=== PATIENT | male | born 1975 | race African-American/Black ===

== ENCOUNTER 2024-03-16 12:32 | Inpatient (IN) | payer OTHER ==
[2024-03-16 14:32] VITALS: BMI 20.9
[2024-03-16] MEDS ORDERED: BENZOCAINE/MENTHOL (CHLORASEPTIC ) LOZENGE MM PRN (14:42)
[2024-03-16] MEDS ORDERED: LOPERAMIDE HCL 2 MG CAPSULE PO PRN (14:42)
[2024-03-16] MEDS ORDERED: NALOXONE (NARCAN) HCL 4 MG/0.1 ML SPRAY NS PRN (14:42)
[2024-03-16] MEDS ORDERED: MAGNESIUM HYDROX 2400MG/30ML ORAL SUSPENSION 30 ML CUP PO PRN (14:42)
[2024-03-16] MEDS ORDERED: IBUPROFEN 400 MG TABLET (FP) PO PRN (14:42)
[2024-03-16] MEDS ORDERED: BISMUTH SUBSALICYLATE 524 MG/30 ML PO PRN (14:42)
[2024-03-16] MEDS ORDERED: BENZONATATE 200 MG CAPSULE PO PRN (14:42)
[2024-03-16] MEDS ORDERED: MAG HYDROX/AL HYDROX/SIMETH 30 ML UNIT-DOSE CUP PO PRN (14:42)
[2024-03-16] MEDS ORDERED: guaiFENesin 600 MG TABLET.ER (FP) PO PRN (14:42)
[2024-03-16] MEDS ORDERED: chlordiazePOXIDE HCL 25 MG CAPSULE PO PRN (14:42)
[2024-03-16] MEDS ORDERED: DICYCLOMINE HCL 10 MG CAPSULE PO PRN (14:42)
[2024-03-16] MEDS ORDERED: ONDANSETRON *ODT* 4 MG TABLET SL PRN (14:42)
[2024-03-16] MEDS ORDERED: POLYETHYLENE GLYCOL (HEALTHYLAX) 3350 17 GM PACKET PO PRN (14:42)
[2024-03-16] MEDS: PRENATAL VITAMINS W/ FOLIC ACID TABLET (FP) PO SCH (17:08)
[2024-03-16] MEDS ORDERED: ALBUTEROL SO4 HFA INHALER IH PRN (17:53)
[2024-03-16] MEDS: MELATONIN 5 MG TABLETS PO SCH (22:44)
[2024-03-16] MEDS: chlordiazePOXIDE HCL 25 MG CAPSULE PO SCH (22:44)
[2024-03-16] MEDS: THIAMINE 100 MG TABLET PO SCH (22:44)
[2024-03-17] MEDS: BICTEGRAV/EMTRICIT/TENOFOV (BIKTARVY) 50-200-25 MG TABLET PO SCH (08:04)
[2024-03-17 11:14] LABS: HEMATOCRIT 39.4 % (35.4-49); HEMOGLOBIN 12.6 GM/dL (11.7-16.9); MCH 29.1 pg (25.7-33.7); MCHC 31.9 g/dl (32.0-35.9); MEAN CELL VOLUME 91.4 fl (80-96); MEAN PLT VOLUME 9.1 fl (7.5-11.1); PLATELET COUNT 176 10^3/uL (134-434); RBC 4.32 M/mm3 (4.00-5.60)
[2024-03-17] MEDS ORDERED: diazePAM 5 MG TABLET PO PRN (12:21)
[2024-03-17 13:32] LABS: CHLORIDE 111 mmol/L (98-107); POTASSIUM 3.8 mmol/L (3.5-5.1); SODIUM 144 mmol/L (136-145)
[2024-03-17 13:35] LABS: CALCIUM 9.2 mg/dL (8.5-10.1)
[2024-03-17 13:36] LABS: ALBUMIN 3.1 g/dl (3.4-5.0); ANION GAP 5 mmol/L (4-13); BLOOD UREA NITROGEN 11.6 mg/dL (7-18); CO2 28 mmol/L (21-32); GLUCOSE,RANDOM 100 mg/dL (74-106)
[2024-03-17 13:41] LABS: BILIRUBIN,TOTAL 0.5 mg/dL (0.2-1); SGOT/AST 19 U/L (15-37)
[2024-03-17 13:42] LABS: ALK PHOS 99 U/L (45-117)
[2024-03-17 13:43] LABS: SGPT/ALT 17 U/L (13-61)
[2024-03-17] MEDS: diazePAM 5 MG TABLET PO SCH (17:37)
[2024-03-17] MEDS: IBUPROFEN 600 MG TABLET (FP) PO PRN (17:38)
[2024-03-17] MEDS: MELATONIN 5 MG TABLETS PO SCH (22:38)
[2024-03-18] MEDS: ACETAMINOPHEN 325 MG TABLET (FP) PO PRN (03:07)
[2024-03-18] MEDS: hydrOXYzine PAMOATE 25 MG CAPSULE (FP) PO PRN (03:08)
[2024-03-18] MEDS ORDERED: chlordiazePOXIDE HCL 25 MG CAPSULE PO SCH (05:00)
[2024-03-18] MEDS: OLANZapine 10 MG TABLET PO SCH (22:33)
[2024-03-19] MEDS ORDERED: chlordiazePOXIDE HCL 10 MG CAPSULE PO PRN
[2024-03-19] MEDS ORDERED: chlordiazePOXIDE HCL 10 MG CAPSULE PO SCH (05:00)
[2024-03-19] MEDS: diazePAM 5 MG TABLET PO SCH (05:46)
[2024-03-20] MEDS ORDERED: chlordiazePOXIDE HCL 10 MG CAPSULE PO SCH (05:00)
[2024-03-20] MEDS: diazePAM 5 MG TABLET PO SCH (05:40)
[2024-03-20 09:30] LABS: EOS % 4.3 % (0-4.5); HEMATOCRIT 39.2 % (35.4-49); LYMPH % 38.1 % (8-40); MCH 29.9 pg (25.7-33.7); MCHC 33.1 g/dl (32.0-35.9); MEAN CELL VOLUME 90.3 fl (80-96); MEAN PLT VOLUME 9.1 fl (7.5-11.1); MONO % 10.4 % (3.8-10.2); NEUT % 46.2 % (42.8-82.8); PLATELET COUNT 189 10^3/uL (134-434); RBC 4.34 M/mm3 (4.00-5.60); RDW 15.1 % (11.9-15.9); WHITE BLOOD COUNT 3.3 K/mm3 (4.0-10.0)
[2024-03-20] MEDS: NALOXONE (NYS OPIOID OVERDOSE PROGRAM) 4 MG/0.1 ML SPRAY NS SCH (10:07)
[2024-03-20] MEDS: METHOCARBAMOL 500 MG TABLET PO PRN (22:28)
[2024-03-21] MEDS ORDERED: chlordiazePOXIDE HCL 10 MG CAPSULE PO ONE (05:00)
[2024-03-21] MEDS: diazePAM 5 MG TABLET PO ONE (06:22)
[2024-03-21 09:07] VITALS: BP 107/60; PULSE 83; RESP 18; TEMP 98.6
== END 2024-03-21 12:35 | disposition other institution (70) | DRG 775 ==
LOC: YASAS 12:32 → Y6N 17:15
PROVIDERS: ADMIT Allergy & Immunology; ATTEND Family Medicine Addiction Medicine
PROC: HZ2ZZZZ Detoxification Services for Substance Abuse Treatment (ICD-10-PCS; principal; 2024-03-16)
DX: F10.230 Alcohol dependence with withdrawal, uncomplicated (principal); F17.213 Nicotine dependence, cigarettes, with withdrawal; F25.9 Schizoaffective disorder, unspecified; Z21 Asymptomatic human immunodeficiency virus [HIV] infection status; J45.20 Mild intermittent asthma, uncomplicated; Z20.2 Contact with and (suspected) exposure to infections with a predominantly sexual mode of transmission; Z79.899 Other long term (current) drug therapy; Z86.19 Personal history of other infectious and parasitic diseases
CPT/HCPCS: 36415; 80053; 80305; 80307; 85025; 85027; 86593; 86780; 93005; 93010

== ENCOUNTER 2024-03-31 23:26 | Inpatient (IN) | payer OTHER ==
[2024-04-01 01:01] VITALS: BMI 21.2
[2024-04-01] MEDS ORDERED: NALOXONE (NARCAN) HCL 4 MG/0.1 ML SPRAY NS PRN (01:27)
[2024-04-01] MEDS ORDERED: MAGNESIUM HYDROX 2400MG/30ML ORAL SUSPENSION 30 ML CUP PO PRN (01:27)
[2024-04-01] MEDS ORDERED: MAG HYDROX/AL HYDROX/SIMETH 30 ML UNIT-DOSE CUP PO PRN (01:27)
[2024-04-01] MEDS ORDERED: METHOCARBAMOL 500 MG TABLET PO PRN (01:27)
[2024-04-01] MEDS ORDERED: ACETAMINOPHEN 325 MG TABLET (FP) PO PRN (01:27)
[2024-04-01] MEDS ORDERED: NALOXONE HCL 0.4 MG/ML VIAL IVPUSH PRN (01:27)
[2024-04-01] MEDS ORDERED: POLYETHYLENE GLYCOL (HEALTHYLAX) 3350 17 GM PACKET PO PRN (01:27)
[2024-04-01] MEDS ORDERED: guaiFENesin 600 MG TABLET.ER (FP) PO PRN (01:27)
[2024-04-01] MEDS ORDERED: BENZONATATE 200 MG CAPSULE PO PRN (01:27)
[2024-04-01] MEDS ORDERED: NICOTINE POLACRILEX 2 MG GUM BUC PRN (01:27)
[2024-04-01] MEDS ORDERED: IBUPROFEN 400 MG TABLET (FP) PO PRN (01:27)
[2024-04-01] MEDS ORDERED: BENZOCAINE/MENTHOL (CHLORASEPTIC ) LOZENGE MM PRN (01:27)
[2024-04-01] MEDS ORDERED: LOPERAMIDE HCL 2 MG CAPSULE PO PRN (01:27)
[2024-04-01] MEDS ORDERED: hydrOXYzine PAMOATE 25 MG CAPSULE (FP) PO PRN (01:27)
[2024-04-01] MEDS ORDERED: ALBUTEROL SO4 HFA INHALER IH PRN (01:30)
[2024-04-01] MEDS ORDERED: NALOXONE (NYS OPIOID OVERDOSE PROGRAM) 4 MG/0.1 ML SPRAY NS PRN (10:00)
[2024-04-01] MEDS: NICOTINE 14 MG/24 HOURS TOPICAL PATCH TD SCH (10:14)
[2024-04-01] MEDS: PRENATAL VITAMINS W/ FOLIC ACID TABLET (FP) PO SCH (10:14)
[2024-04-01] MEDS: BICTEGRAV/EMTRICIT/TENOFOV (BIKTARVY) 50-200-25 MG TABLET PO SCH (10:14)
[2024-04-01] MEDS: MELATONIN 5 MG TABLETS PO SCH (21:19)
[2024-04-01] MEDS: THIAMINE 100 MG TABLET PO SCH (21:19)
[2024-04-01] MEDS: OLANZapine 10 MG TABLET PO SCH (21:19)
[2024-04-05] MEDS: IBUPROFEN 600 MG TABLET (FP) PO PRN (09:52)
[2024-04-06 06:46] VITALS: BP 115/61; PULSE 63; RESP 16; TEMP 97.3
[2024-04-06] MEDS: NALOXONE (NYS OPIOID OVERDOSE PROGRAM) 4 MG/0.1 ML SPRAY NS PRN (14:48)
== END 2024-04-06 15:06 | disposition home or self-care (01) | DRG 772 ==
LOC: YASAS 23:26 → Y3W 04-01 02:11
PROVIDERS: ADMIT Allergy & Immunology; ATTEND Allergy & Immunology
PROC: HZ42ZZZ Group Counseling for Substance Abuse Treatment, Cognitive-Behavioral (ICD-10-PCS; principal; 2024-04-01)
DX: F10.20 Alcohol dependence, uncomplicated (principal); F14.20 Cocaine dependence, uncomplicated; F17.210 Nicotine dependence, cigarettes, uncomplicated; F25.9 Schizoaffective disorder, unspecified; Z21 Asymptomatic human immunodeficiency virus [HIV] infection status; J45.20 Mild intermittent asthma, uncomplicated; Z20.2 Contact with and (suspected) exposure to infections with a predominantly sexual mode of transmission; Z79.899 Other long term (current) drug therapy
CPT/HCPCS: 36415; 80305; 82962; 86803; 87811